=== PATIENT | male | born 1980 | race Caucasian/White ===

== ENCOUNTER 2016-06-24 14:19 | Emergency (ER) | payer OTHER, MEDICARE ==
[~2016-06-24] VITALS: Ht 193 cm; Wt 128.4 kg
--- NOTE | 2016-06-24 14:31 | ED HEADACHE COMPLAINT ---
History of Present Illness General Chief Complaint: Headache Stated Complaint: BARBOSA, FEVER, X 1 DAY, PT HAS A SHUNT Source: patient Exam Limitations: no limitations Vital Signs & Intake/Output Vital Signs & Intake/Output Vital Signs Date Time Temp Pulse Resp B/P Pulse O2 O2 Flow FiO2 Ox Delivery Rate 06/24 1729 100.2 94 18 133/64 96 Room Air 06/24 1723 95 06/24 1705 100.4 06/24 1601 100.4 103 20 128/71 95 Room Air 06/24 1425 100.8 126 16 119/87 96 Room Air ED Intake and Output 06/25 0000 06/24 1200 Intake Total 1100 Output Total Balance 1100 Intake, IV 1100 Patient 283 lb Weight Allergies Coded Allergies: latex (THROAT SWELLS 06/24/16) Reconcile Medications Albuterol Sulfate (Ventolin Hfa) 90 MCG HFA.AER.AD 2 PUF INH Q4-6 PRN PRN ASTHMA (Reported) Benztropine Mesylate 0.5 MG TABLET 1 TAB PO BID TREMORS (Reported) Budesonide/Formoterol Fumarate (Symbicort 160-4.5 Mcg Inhaler) 160 MCG-4.5 MCG/ ACTUATION HFA.AER.AD 2 PUF INH BID ASTHMA (Reported) Bupropion HCl (Bupropion XL) 150 MG TAB.ER.24H 1 TAB PO QAM MENTAL HEALTH ( Reported) Divalproex Sodium 500 MG TABLET.DR 1 TAB PO BID MENTAL HEALTH (Reported) Gabapentin 300 MG CAPSULE 1 CAP PO TID MENTAL HEALTH (Reported) Omeprazole 40 MG CAPSULE.DR 1 CAP PO DAILY GI (Reported) Tramadol HCl 50 MG TABLET 1 TAB PO TID PRN PAIN (Reported) Triage Note: 35 Y/O MALE C/O PAIN IN R SIDED HEAD PAIN AND NAUSEA, SYMPTOMS ONSET THIS AM AFTER WAKING. STATES HX SHUNT "IN MY HEART TO DRAIN THE FLUID DUE TO HYDROCEPHALUS". STATES HE HAS HAD 38 SHUNT REVISIONS SINCE INFANCY. STATES HE WAS OK WHEN HE WENT TO BED. THIS AM FELT "WEAK AND NAUSOUS". ALSO C/O FEVERS. TEMP 100.8 - TOOK 800MG MOTRIN 1 HOUR AGO. Triage Nurses Notes Reviewed? yes Onset: Abrupt Duration: day(s): (1) Timing: multiple episodes today Quality/Severity: moderate, severe, pressure Head Injury Location: RIGHT SIDE OVER SHUNT No Modifying Factors: none Associated Symptoms: HEADACHE, FEVER, DIZZINESS, BLURRED VISION HPI: 35 year old male with history of hydrocephalus s/p vp ad products and planning shunt as an infant presents to the ER for chief complaint of right sided head pain at his shunt site, dizziness for one day. Subjectively felt warm this morning and took 800 mg of motrin and his sister suggested. Past History Travel History Traveled to [place] past 21 day No Medical History Any Pertinent Medical History? see below for history Neurological: HYDROCEPHALUS EENT: NONE Cardiovascular: NONE Respiratory: NONE Gastrointestinal: NONE Hepatic: NONE Renal: NONE Musculoskeletal: SPINA BIFIDA Psychiatric: bipolar disease Endocrine: NONE Blood Disorders: NONE Cancer(s): NONE DEPOT MANAGER/Reproductive: NONE Surgical History Surgical History: CONTROL AND RECOVERY COMBAT RESCUE SHUNT - REVISED LAST YEAR AT [facility] Psychosocial History What is your primary language [place] Tobacco Use: Quit >30 days ago ETOH Use: occasional use Illicit Drug Use: denies illicit drug use Family History Hx Contributory? No Review of Systems Review of Systems Constitutional: Reports: chills, fever. Eyes: Reports: blurred vision. Ears, Nose, Throat, Mouth: Reports: no symptoms. Respiratory: Denies: cough, short of breath. Cardiovascular: Denies: chest pain, palpitations. Gastrointestinal/Abdominal: Reports: no symptoms. Genitourinary: Reports: no symptoms. Musculoskeletal: Reports: no symptoms. Skin: Reports: no symptoms. Neurological/Psychological: Reports: see HPI (DIZZY), ataxia, headache. Hematologic/Endocrine: Reports: no symptoms. Endocrine: Reports: no symptoms. Immunologic/Allergic: Denies: splenectomy. All Other Systems: Reviewed and Negative Physical Exam Physical Exam General Appearance: well developed/nourished, alert, awake, anxious, mild distress Head: PALPABLE VENTRICULAR SHUNT, PAIN ALONG SHUNT Eyes: Bilateral: normal appearance, PERRL, EOMI. Ears, Nose, Throat: normal pharynx, normal ENT inspection, hearing grossly normal Neck: normal inspection, supple, full range of motion, NO MENINGISMUS Respiratory: normal breath sounds, chest non-tender, no respiratory distress Cardiovascular: regular rate/rhythm Gastrointestinal: normal bowel sounds, soft, non-tender Extremities: normal inspection, normal capillary refill, normal range of motion, no edema Psychiatric: awake, alert, oriented x 3, NO MENINGISMUS Cranial Nerves: normal hearing, normal speech, PERRL Motor/Sensory: no motor/sensory deficits Skin: intact, normal color, warm/dry Core Measures Severe Sepsis Present: No Septic Shock Present: No Progress Differential Diagnosis: meningitis, musculoskeletal pain, INFLUENZA, OBSTRUCTED SHUNT, INFECTED SHUNT Plan of Care: Orders Procedure Date/time Status THROAT CULTURE W/QUICK STREP 06/25 1443 Complete BLOOD CULTURE 06/25 1443 Active DEPAKOTE LEVEL 06/24 144 Complete COMPREHENSIVE METABOLIC PANEL 06/25 1443 Complete CBC WITHOUT DIFFERENTIAL 06/25 1443 Complete Laboratory Tests 06/24/16 1541: Anion Gap 13, Estimated GFR > 60, BUN/Creatinine Ratio 10.0, Glucose 88, Calcium 9.2, Total Bilirubin 0.8, AST 20, ALT 42, Alkaline Phosphatase 61, Total Protein 7.1, Albumin 4.1, Globulin 3.0, Albumin/Globulin Ratio 1.4, CBC w Diff MAN DIFF ORDERED, RBC 5.56, MCV 81.0, MCH 26.9 L, RDW 13.9, MPV 8.8, Gran % 84.5 H, Lymphocytes % 11.5 L, Monocytes % 3.6, Eosinophils % 0.3, Basophils % 0.1, Absolute Granulocytes 17.9 H, Segmented Neutrophils 79 H, Band Neutrophils 2, Absolute Lymphocytes 2.4, Lymphocytes 14 L, Monocytes 4, Absolute Monocytes 0.8 H, Absolute Eosinophils 0.1, Basophils 1, Absolute Basophils 0, Normocytic RBCs VERIFIED, Normochromic RBCs VERIFIED, PUBS MCHC 33.3, Fld Total RBCs Counted 100 , Valproic Acid 75.1 06/24/16 1444: Urine Color Cancelled, Urine Clarity Cancelled, Urine pH Cancelled, Ur Specific Mabie Cancelled, Urine Protein Cancelled, Urine Ketones Cancelled, Urine Nitrite Cancelled, Urine Bilirubin Cancelled, Urine Urobilinogen Cancelled, Ur Leukocyte Esterase Cancelled, Ur Microscopic Cancelled, Urine Hemoglobin Cancelled, Urine Glucose Cancelled Microbiology 06/24 1556 BLOOD: Blood Culture - RECD 06/24 1541 BLOOD: Blood Culture - RECD 4:[address] JENNIFER NOGUEIRA OFFICE PAGED. NEUROSURGERY RESIDENT AT [facility] PAGED. CT NEGATIVE. PATIENT WOULD LIKE TO GO TO [facility] FOR SHUNT EVALUATION. D/W DR NOGUEIRA. PATIENT HAS A HISTORY OF INFLAMMATORY CHANGES TO CONTROL AND RECOVERY COMBAT RESCUE SHUNT WHEN HE HAS A CONCOMITANT VIRAL ILLNESS. FEELS MAY BE ASEPTIC. PATIENT TRANSFERRED TO [facility] ED TO BE ASSESSED BY HIM. IMAGES SENT TO [facility]. PATIENT'S SISTER DE UPDATED. (RENATE ABREU,MARIA ELENA) Diagnostic Imaging: Viewed by Me: Radiology Read, CT Scan. Discussed w/RAD: Radiology Read, CT Scan. Radiology Impression: PATIENT: ISAK WHEELER PRESENT AGE: 35 PATIENT ACCOUNT NO: [id number] : 78 LOCATION: [facility] ORDERING PHYSICIAN: MARIA ELENA DEWITT MD SERVICE DATE: 06/24/16 EXAM TYPE: RAD - XRY -ABDOMEN-SINGLE VIEW; XRY-CERV SPINE 3 VIEWS OR LESS; XRY-CHEST XRAY, PA AND LATERAL; XRY-SKULL 1-3 VIEWS EXAMINATION: XR SKULL XR CERVICAL SPINE XR CHEST XR ABDOMEN CLINICAL INFORMATION: Evaluate CONTROL AND RECOVERY COMBAT RESCUE shunt. Cough and fever. Headache and dizziness. COMPARISON: None TECHNIQUE: 2 views of the skull. 2 views of the cervical spine. 2 views, 3 images of the chest. Single view of the abdomen. FINDINGS: Shunt: There is a right frontal approach shunt catheter in place. No gross evidence of discontinuity in the region of the skull. The tubing extends along the right cervical soft tissues, appearing intact. Abandoned section of tubing seen in the cervical soft tissues as well. The tubing extends to the level of the right apex, coursing medially in the right paratracheal region. Due to the exposure of this study, the tip is not definitively visualized, but appears to cross the midline. This does not extend into the abdomen. Skull: No acute osseous abnormality. The visualized paranasal sinuses appear clear. Cervical spine: No acute fracture or subluxation. Vertebral body height and alignment is maintained. Surgical clips overlie the right cervical soft tissues. The prevertebral soft tissues are unremarkable. Chest: Bilateral nipple rings. The lungs are well expanded. No consolidation, edema, or effusion. No pneumothorax. The cardiomediastinal silhouette is within normal limits. Abdomen: Normal bowel gas pattern. No dilated loops of bowel or obstruction. Gas and stool in the colon. IMPRESSION: Shunt tubing is seen extending into the region of the right lung apex and likely crossing the midline with the tip not definitively viewed. The shunt does not extend to the abdomen. This could terminate in the pleural space. No additional acute finding of the imaged skull, cervical spine, chest, and abdomen. DICTATED BY: TEN ABREU,JOVANI DATE/TIME DICTATED:06/24/161535 TANK BUILDER AND ERECTOR:CHASTITY DATE/TIME TRANSCRIBED:1535 CONFIDENTIAL, DO NOT COPY WITHOUT APPROPRIATE AUTHORIZATION. < Electronically signed in Other Vendor System> SIGNED BY: JOVANI CAAL MD 06/24/16 1545 Comments: PATIENT: ISAK WHEELER PRESENT AGE: 35 PATIENT ACCOUNT NO: [id number] : 78 LOCATION: [facility] ORDERING PHYSICIAN: MARIA ELENA DEWITT MD SERVICE DATE: 06/24/16 EXAM TYPE: CAT - CT HEAD WO IV CONTRAST EXAMINATION: CT HEAD WITHOUT CONTRAST CLINICAL INFORMATION: Headache. Blurred vision. CONTROL AND RECOVERY COMBAT RESCUE shunt in place. COMPARISON: None. TECHNIQUE: Contiguous axial images of the brain were obtained without IV contrast. DLP: 601 mGy-cm. FINDINGS: There are no pathologic extra-axial fluid collections. A right-sided CONTROL AND RECOVERY COMBAT RESCUE shunt is in place. The tip appears to terminate superior to the cerebellum. There is no discontinuity along the course of the catheter. The lateral ventricles are not dilated. They are slightly parallel. There is no evidence for acute intraparenchymal hemorrhage or infarct. There is neither mass nor mass effect. There is no shift of midline structures. The paranasal sinuses and mastoid air cells are clear. There are no osseous lesions. IMPRESSION: No evidence for acute intracranial injury. CONTROL AND RECOVERY COMBAT RESCUE shunt in place without evidence of hydrocephalus. DICTATED BY: IVAN HOLDEN MD DATE/TIME DICTATED:06/24/161628 TANK BUILDER AND ERECTOR:CHASTITY DATE/TIME TRANSCRIBED:06/24/161628 CONFIDENTIAL, DO NOT COPY WITHOUT APPROPRIATE AUTHORIZATION. <Electronically signed in Other Vendor System> SIGNED BY: IVAN HOLDEN MD 06/24/16 1641 Departure Departure Disposition: [facility] (ACUTE) Condition: Stable Clinical Impression Primary Impression: Headache Referrals: PATIENT HAS NO PRIMARY CARE DR Departure Forms: Customer Survey General Discharge Information
--- NOTE | 2016-06-24 15:45 | RADIOLOGY REPORT ---
EXAMINATION: XR SKULL XR CERVICAL SPINE XR CHEST XR ABDOMEN CLINICAL INFORMATION: Evaluate DIRECTOR SHIP shunt. Cough and fever. Headache and dizziness. COMPARISON: None TECHNIQUE: 2 views of the skull. 2 views of the cervical spine. 2 views, 3 images of the chest. Single view of the abdomen. FINDINGS: Shunt: There is a right frontal approach shunt catheter in place. No gross evidence of discontinuity in the region of the skull. The tubing extends along the right cervical soft tissues, appearing intact. Abandoned section of tubing seen in the cervical soft tissues as well. The tubing extends to the level of the right apex, coursing medially in the right paratracheal region. Due to the exposure of this study, the tip is not definitively visualized, but appears to cross the midline. This does not extend into the abdomen. Skull: No acute osseous abnormality. The visualized paranasal sinuses appear clear. Cervical spine: No acute fracture or subluxation. Vertebral body height and alignment is maintained. Surgical clips overlie the right cervical soft tissues. The prevertebral soft tissues are unremarkable. Chest: Bilateral nipple rings. The lungs are well expanded. No consolidation, edema, or effusion. No pneumothorax. The cardiomediastinal silhouette is within normal limits. Abdomen: Normal bowel gas pattern. No dilated loops of bowel or obstruction. Gas and stool in the colon. IMPRESSION: Shunt tubing is seen extending into the region of the right lung apex and likely crossing the midline with the tip not definitively viewed. The shunt does not extend to the abdomen. This could terminate in the pleural space. No additional acute finding of the imaged skull, cervical spine, chest, and abdomen.
[2016-06-24] MEDS ORDERED: OMEPRAZOLE40 M1 PO (15:49)
[2016-06-24] MEDS ORDERED: DIVALPROEX SOD500 M2 PO (15:49)
[2016-06-24] MEDS ORDERED: BENZTROPINE ME0.5 M1 PO (15:49)
[2016-06-24] MEDS ORDERED: BUPROPION XL150 MG PO (15:49)
[2016-06-24] MEDS ORDERED: VENTOLIN HFA18 GM INH (15:50)
[2016-06-24] MEDS ORDERED: SYMBICORT 16010.2 GM INH (15:50)
[2016-06-24] MEDS ORDERED: GABAPENTIN300 M2 PO (15:50)
[2016-06-24] MEDS ORDERED: TRAMADOL HCL50 M1 PO (15:50)
[2016-06-24 16:12] LABS: ABSOLUTE BASOPHIL COUNT 0 /CUMM (0.0-0.2); ABSOLUTE EOSINOPHIL COUNT 0.1 /CUMM (0.0-0.7); ABSOLUTE GRANULOCYTE CT 17.9 /CUMM (1.4-6.5); ABSOLUTE LYMPH COUNT 2.4 /CUMM (1.2-3.4); ABSOLUTE MONOCYTE COUNT 0.8 /CUMM (0.10-0.60); BASOPHIL % 0.1 % (0.0-2.0); EOSINOPHIL % 0.3 % (0-5); GRANULOCYTE % 84.5 % (42.2-75.2); MEAN CORPUSCULAR HGB 26.9 PG (27.0-31.0); MEAN CORPUSCULAR HGB CONC 33.3 G/DL (33.0-37.0); MEAN PLATELET VOLUME 8.8 FL (7.4-10.4); PLATELET COUNT 228 /CUMM (130-400); RBC DISTRIBUTION WIDTH 13.9 % (11.5-14.5); RED BLOOD CELL CT 5.56 /CUMM (4.70-6.10); WHITE BLOOD CELL COUNT 21.1 /CUMM (4.8-10.8)
--- NOTE | 2016-06-24 16:41 | CT SCAN REPORT ---
EXAMINATION: CT HEAD WITHOUT CONTRAST CLINICAL INFORMATION: Headache. Blurred vision. PAIRER SUBSTANDARD shunt in place. COMPARISON: None. TECHNIQUE: Contiguous axial images of the brain were obtained without IV contrast. DLP: 601 mGy-cm. FINDINGS: There are no pathologic extra-axial fluid collections. A right-sided PAIRER SUBSTANDARD shunt is in place. The tip appears to terminate superior to the cerebellum. There is no discontinuity along the course of the catheter. The lateral ventricles are not dilated. They are slightly parallel. There is no evidence for acute intraparenchymal hemorrhage or infarct. There is neither mass nor mass effect. There is no shift of midline structures. The paranasal sinuses and mastoid air cells are clear. There are no osseous lesions. IMPRESSION: No evidence for acute intracranial injury. PAIRER SUBSTANDARD shunt in place without evidence of hydrocephalus.
[2016-06-24 17:29] VITALS: BP 133/64
== END 2016-06-24 17:59 | disposition short-term general hospital (02) ==
LOC: ERH 14:19
PROVIDERS: Emergency Medicine
DX: R51 Headache (principal)
CPT/HCPCS: 70250; 72040; 74000; 87040; 96374; J0131